=== PATIENT | female | born 1985 | race Caucasian/White ===

== ENCOUNTER 2020-05-26 01:39 | Outpatient (CLI) | payer OTHER, SELFPAY ==
[2020-05-26 19:02] LABS: SARS-CoV-2 RNA PCR Negative
== END 2020-05-26 01:40 | disposition home or self-care (01) ==
LOC: ANHCOVIDDT 01:40
PROVIDERS: PCP Family Medicine; Visit Provider Orthopaedic Surgery
DX: Z01.812 Encounter for preprocedural laboratory examination (principal); Z20.828 Contact with and (suspected) exposure to other viral communicable diseases
CPT/HCPCS: 87635; C9803; U0003

== ENCOUNTER 2020-05-26 08:04 | Outpatient (CLI) | payer OTHER, SELFPAY ==
--- NOTE | 2020-05-26 08:00 | ECG_ITS ---
Measurements Intervals [place] Rate: 65 P: 72 HI: 179 QRS: 82 QRSD: 104 T: 47 QT: 374 QTc: 390 Interpretive Statements SINUS RHYTHM INCOMPLETE RIGHT BUNDLE BRANCH BLOCK DELAYED PRECORDIAL R/S TRANSITION BORDERLINE ECG Electronically Signed On 05-26-2020 8:35:00 CDT by Marcelo Nguyen D.O.
== END 2020-05-26 08:05 | disposition home or self-care (01) ==
PROVIDERS: PCP Family Medicine; Visit Provider Orthopaedic Surgery
DX: Z87.891 Personal history of nicotine dependence (principal); Z01.818 Encounter for other preprocedural examination; I45.10 Unspecified right bundle-branch block
CPT/HCPCS: 93005

== ENCOUNTER 2020-05-28 00:51 | Day surgery (SDC) | payer OTHER, SELFPAY ==
[2020-05-15 13:56] VITALS: BMI 24.2
--- NOTE | 2020-05-27 14:13 | WPDANESEPPF ---
Anes - Initial Pre Proc Eval Procedure: Operation Date: 05/28/20 08:30 Proposed Procedures p Removal Hardware Left Ankle - López Goss MD Date/Time: 05/27/20 14:13 Surgeon: López Goss MD Pre Op Diagnosis: painful hardware left ankle Patient Data Age: 35 Gender: F Height: 5 ft 6 in Weight: 68.04 kg Allergies Allergy/AdvReac Type Severity Reaction Status Date / Time No Known Allergies Allergy Verified 05/28/20 06:50 Home Medications Medication Instructions Recorded Confirmed Type clindamycin HCl 300 mg capsule 300 mg PO Q8H 04/29/20 05/28/20 History estradiol 2 mg tablet 2 mg PO DAILY 04/29/20 05/28/20 History medroxyprogesterone 2.5 mg tablet 2.5 mg PO DAILY 04/29/20 05/28/20 History sertraline 100 mg tablet 100 mg PO DAILY 04/29/20 05/28/20 History valacyclovir [Valtrex] 500 mg PO Q12H 05/15/20 05/28/20 History Patient hx anesthesia problems: none Family hx anesthesia problems: none PMFSH Past Medical History Medical History (Updated 05/28/20 @ 07:58 by Saúl Cabrera MD) Anxiety Constipation Depression Painful orthopaedic hardware Tibia/fibula fracture Urinary frequency Vertigo Family History Family History Grandparent Family history of pulmonary embolism, Onset Age: 32 Other Diabetes mellitus Family history of arthritis Family history of cardiovascular disease Family history of chronic obstructive pulmonary disease Family history of elevated blood lipids Family history of malignant neoplasm Hypertension Social History Social History Smoking packs per day: 1 Smoking cigarettes per day: 20.0 Years smoked: 20 Smoking pack-years: 20.00 Smoking status: Current every day smoker Tobacco type: cigarettes Second hand tobacco smoke exposure: No Alcohol intake: current Drinks per week: 1 Substance use: current Substance use type: marijuana Last use: DAILY Gender identity (if verbalized by the patient): Female Anes - Eval Final PreProcedure Day of Procedure 05/27/20 14:13 Patient weight: normal Heart: regular rate and rhythm Lungs: clear to auscultation Airway: Mallampati scale class II Neurological: alert and oriented Last oral intake: >/= 8 hours ASA classification: II Emergent: no Anesthetic plan: proceed Anesthesia type and monitoring: general LMA and standard monitoring Informed Consent: The patient's anesthetic plan and its attendant risks and benefits were discussed with the patient/family/POA. Questions were solicited and answers provided to the satisfaction of the patient/family/POA.
[2020-05-28] VITALS (8 sets, daily range): BP systolic 99–115; BP diastolic 61–74; PULSE 50–72; RESP 14–18; TEMP 36.4–36.8; O2SAT 97–100
--- NOTE | ~2020-05-28 | XR_ITS ---
EXAMINATION: XR surgery orthopedic DATE: 05/28/2020 09:24 INDICATION: Orthopedic instrumentation removal at the left ankle TECHNIQUE: 2 fluoroscopic spot images of the left ankle were obtained in frontal and lateral projecti ons during procedure performed by Dr. Goss. Radiologist was not present for the imaging or procedu re. The amount of fluoroscopy time used during this procedure was 1.1 minutes. COMPARISON: 04/29/2020 FINDINGS: Interval removal of a pair of interlocking screws extending through the distal aspect of a tibial ant egrade intramedullary mykel. Residual lucent screw tracks are seen at the metaphyseal region of the dis loren tibia. Old healed fracture at the distal tibial diaphysis. There are also is a healed distal fibu lar fracture. Alignment appears essentially anatomic. No acute fracture. Tibiotalar, subtalar and loren onavicular joint spaces appear relatively preserved. IMPRESSION: 1. Fluoroscopy utilized for removal of a pair of interlocking screws associated with an intramedullar y mykel fixation of a healed distal left tibial diaphyseal fracture. No acute osseous abnormality. Reviewed, dictated and finalized at location A. IMPRESSION: 1. Fluoroscopy utilized for removal of a pair of interlocking screws associated with an intramedullary mykel fixation of a healed distal left tibial diaphyseal fracture. No acute osseous abnormality.
--- NOTE | 2020-05-28 06:59 | WPDHPUPDATE1 ---
History and Physical Update Update Date/Time: 05/28/20 06:59 History and Physical has been reviewed, including an updated exam of the patient. There are NO changes in the patient's condition. Covid test negative. Risks, benefits, and alternatives have been discussed and questions answered. Patient agrees to proceed with procedure. Plan is for hardware removal from LEFT ankle.
[2020-05-28] MEDS: ACETAMINOPHEN 500 MG TABLET 1000 MG PO (07:36)
[2020-05-28] MEDS: LACTATED RINGERS 1,000 ML 30 ML IV CONT (07:36)
[2020-05-28] MEDS: KETOROLAC 15 MG/ML VIAL (*BKC) IV PUSH (07:37)
[2020-05-28] MEDS: ceFAZolin 2 GM/D5W 50 ML 2 GM/50 ML BAG IVPB (08:37)
[2020-05-28] MEDS: BUPIVACAINE HCL 0.5% PF 30 ML VIAL INFILTRATE (09:03)
--- NOTE | 2020-05-28 09:37 | P.OP_ITS ---
Procedure Note - Detailed Date of procedure: 05/28/20 Pre-op diagnosis: painful hardware left ankle Post-op diagnosis: same Procedure performed: Removal of hardware left ankle Description of procedure: indications: Patient is 35-year-old woman who underwent intramedullary fixation of left tibia fracture 1.5 years ago. There is prominence of the distal locking screws at the ankle causing pain as well as rubbing shoe wear. She presents for operative removal. What was done: After informed consent was given the operative extremity was marked in prep holding area. Patient received intravenous antibiotics. She is brought to the operating room where she underwent general anesthetic. She was positioned supine on the operating room table. Time-out was performed confirming the patient and the procedure as well as the site. Left lower extremity then prepped and draped in the usual sterile surgical fashion using ChloraPrep skin solution. Previous surgical scars were utilized and 15 blade knife was used to make an incision over the medial malleolus screw. Blunt dissection carried down of the screw and the screw was removed. Fifteen blade knife used to make an incision over the anterior distal tibia and again blunt dissection used to locate the screw and the screw was removed. Image intensification was then brought in and confirmed removal of the hardware as well as alignment of the ankle joint. Wounds were thoroughly irrigated with solution. Local anesthetic with 0.5% Marcaine plain. Closure performed with 3 0 Monocryl subcuticular stitch and wound adhesive for the skin approximation. Sterile dressing applied. Patient then awoken from anesthesia, extubated and taken to the recovery room in stable condition. All sponge needle and instrument counts correct at the end the case. Anesthesia: GLMA Surgeon: López Goss MD Puppy Walker: administrative office assistant Estimated blood loss (mL): 5 Tourniquet time (min): 0 Drains: No Packing: No Pathology: none sent Complications: None Condition: stable Disposition: PACU
--- NOTE | 2020-05-28 11:32 | SUR.PHASEII ---
1055: Patient is getting dressed. Vitals are stable and patient is unhooked from monitors. Patient is waiting for ride.
== END 2020-05-28 11:08 | disposition home or self-care (01) ==
PROVIDERS: PCP Family Medicine; Visit Provider Orthopaedic Surgery
PROC: (CPT 20680; principal; 2020-05-28 08:30)
DX: T84.84XA Pain due to internal orthopedic prosthetic devices, implants and grafts, initial encounter (principal); M25.572 Pain in left ankle and joints of left foot; S82.202D Unspecified fracture of shaft of left tibia, subsequent encounter for closed fracture with routine healing; F41.8 Other specified anxiety disorders; F17.210 Nicotine dependence, cigarettes, uncomplicated
CPT/HCPCS: 20680; A9270; J0690; J1040; J1100; J1170; J1885; J2250; J2405; J2704; J3010; J7120

== ENCOUNTER 2021-01-24 18:49 | Emergency (ER) | payer OTHER, SELFPAY ==
[2021-01-24 18:55] VITALS: BP 112/76; PULSE 97; RESP 16; TEMP 37.4; O2SAT 99
--- NOTE | 2021-01-24 19:14 | ED.GENADULT ---
HPI - General Adult General Chief complaint: Upper Respiratory Infection Stated complaint: sore throat Time Seen by Provider: 01/24/21 19:12 Source: patient and RN notes reviewed Mode of arrival: ambulatory Limitations: no limitations History of Present Illness HPI narrative: 35-year-old female presents with complaints of sore throat for the past 3 days. ?Patel reports increasing throat pain. Ibuprofen taken last today with little relief. ?No high fevers, drooling, neck or throat swelling. ?Pain is bilateral. ?Hurts to swallow. ?Exacerbation factors consist of eating and drinking. ?No rhinorrhea or nasal congestion. ?No voice change. No nausea, vomiting, or abdominal pain. Tolerating liquids well. Denies chills, dyspnea, difficulty swallowing, jaw pain, dental pain, facial pain, foreign body sensation, and rash. ?Remains active. ?The patient reports she has not been diagnosed with COVID-19. ?The patient reports she received 2 Moderna COVID-19 vaccines. The patient reports she is not waiting for the results of a COVID-19 lab test. ?The patient reports she does not have chills, weakness, or fatigue. ?The patient reports she does not have a new or worsening cough or shortness of breath. ?Denies chest pain. ?The patient reports she does not have any loss of taste or smell, and diarrhea. ?Denies recent traveling. ?Denies concerns for COVID-19 or exposures. ?At this time, the patient is not suspected of having COVID-19. Some parts of this dictation were generated by voice recognition software and may contain typographical and/or grammatical inaccuracies. Related Data Home Medications Medication Instructions Recorded Confirmed clindamycin HCl 300 mg capsule 300 mg PO Q8H 04/29/20 06/02/20 estradiol 2 mg tablet 2 mg PO DAILY 04/29/20 01/24/21 medroxyprogesterone 2.5 mg tablet 2.5 mg PO DAILY 04/29/20 01/24/21 sertraline 100 mg tablet 100 mg PO DAILY 04/29/20 01/24/21 valacyclovir [Valtrex] 500 mg PO Q12H 05/15/20 06/02/20 Allergies Allergy/AdvReac Type Severity Reaction Status Date / Time No Known Allergies Allergy Verified 06/02/20 08:40 Review of Systems Review of Systems: Narrative: CONSTITUTIONAL: Denies fever, chills, sweats. EYES: Denies visual changes, redness, discharge. ENT: Denies rhinorrhea, congestion, otalgia. Complains of sore throat. CARDIOVASCULAR: Denies chest pain, palpitations, edema. RESPIRATORY: Denies dyspnea, wheezing, cough. GASTROINTESTINAL: Denies abdominal pain, nausea, vomiting, diarrhea. SKIN: Denies rash or itching. MUSCULOSKELETAL: Denies acute back pain, joint pain, or myalgia. NEUROLOGIC: Denies numbness or focal weakness. PSYCHIATRIC: Denies anxiety or depression. All systems reviewed & are unremarkable except as noted in HPI and below. [facility] Past Medical History Medical History (Updated 01/25/21 @ 00:01 by Anmol Neely) Anxiety Constipation Depression Painful orthopaedic hardware Tibia/fibula fracture Urinary frequency Vertigo Surgical History Surgical History (Updated 01/24/21 @ 19:38 by SHEILA Shaikh) History of dilation and curettage X2 History of surgery on extremity Family History Family History Grandparent Family history of pulmonary embolism, Onset Age: 32 Other Diabetes mellitus Family history of arthritis Family history of cardiovascular disease Family history of chronic obstructive pulmonary disease Family history of elevated blood lipids Family history of malignant neoplasm Hypertension Social History Social History (Updated 01/24/21 @ 19:37 by SHEILA Shaikh) Smoking packs per day: 1 Smoking cigarettes per day: 20.0 Years smoked: 20 Smoking pack-years: 20.00 Smoking status: Current every day smoker Tobacco type: cigarettes Second hand tobacco smoke exposure: No Alcohol intake: current Drinks per week: 1 Substance use: current
== END 2021-01-24 19:28 | disposition home or self-care (01) ==
PROVIDERS: Emergency Provider Nurse Practitioner Family
DX: J02.9 Acute pharyngitis, unspecified (principal); F17.210 Nicotine dependence, cigarettes, uncomplicated; F41.9 Anxiety disorder, unspecified; F32.9 Major depressive disorder, single episode, unspecified
CPT/HCPCS: 87880; 99213; G0463

== ENCOUNTER 2023-01-26 00:45 | Day surgery (SDC) | payer OTHER, SELFPAY ==
[2023-01-20 15:03] VITALS: BMI 29.0
--- NOTE | 2023-01-20 15:05 | SUR.PREOP ---
Report to the Outpatient Waiting Room, entrance under the green pavilion located off [facility], at time _0600 on date __01/26/23 . Planned Procedure Time: __729 . Time changes happen often and if your time is changed the preop area will call you the afternoon before. - You and your visitor will be asked to self-screen and do not enter if you have any COVID symptoms. - A mask is optional within the hospital at this time. Patients may have clear liquids (water, carbonated beverages, clear teas, apple juice) until 3 hours prior to surgery with a maximum of 20 ounces. - No food from midnight until time of surgery - Infants may have breast milk until 4 hours before surgery, infant formula 6 hours prior to surgery. - Children will be allowed to drink immediately following surgery. If applicable, please bring a bottle or sippy cup to assist with drinking. Juice, water, soda, and popsicles are readily available. For infants on formula, please bring formula the day of surgery. Pacifiers are allowed. Take the following medications with a SIP of water the morning of surgery: ___n/a DO NOT STOP ANY OF YOUR OTHER PRESCRIPTION MEDICATIONS PRIOR TO SURGERY ?EXCEPT THE FOLLOWING Medications to discontinue per physician ___n/a Date to take last dose___n/a Please no make-up, nail upper sorbian, hairspray, perfume, deodorant, or body powder the day of surgery. No jewelry (including any body piercings) or valuables the day of surgery, leave them at home. Please take a shower or bath the night before, or the morning of, surgery with an antibacterial soap. Wear comfortable, loose fitting clothing. Children are encouraged to wear pajamas. - Jewelry must be removed prior to entering the operating room. Rings and piercings that are not removed may be cut off. - The hospital will not accept responsibility for valuables. - Please leave all valuables, including medications, at home the day of surgery. If you are going home after surgery, a licensed livery car driver must drive you home. - NO public transportation without another adult if you receive anesthesia. - We recommend that an adult stay with you for 24 hours following discharge. - We also recommend that you do not drive, make important decision, drink alcoholic beverages, or take any drugs that were not prescribed by your health care provider for at least 24 hours after your discharge time. For Pediatric surgeries, we recommend two adults accompany the child home. Follow any additional instructions given to you from your surgeon. If you or anyone in your household have experienced Covid symptoms in the past week, please notify your surgeon or the nurse liaison at the phone number below for possible testing. Telephone instructions given to _juan manzano and asked if any additional questions and then verbalized understanding. Patient advised to call surgeon office or pre surgery nurse liaison [phone] if any additional questions.
--- NOTE | 2023-01-23 10:33 | PC.NURSE ---
called pt states takes venlafexine in afternoon and does not wish to take am of surgery,tooth abcess 2017 not on antibiotics
[2023-01-26] VITALS (12 sets, daily range): BP systolic 115–150; BP diastolic 73–97; PULSE 51–98; RESP 14–20; TEMP 35.9–36.5; O2SAT 90–99
[2023-01-26] MEDS: LACTATED RINGERS 1,000 ML 30 ML IV CONT ×2 (06:30→08:31)
--- NOTE | 2023-01-26 07:04 | WPDHPUPDATE1 ---
History and Physical Update Update Date/Time: 01/26/23 07:04 History and Physical has been reviewed, including an updated exam of the patient. There are NO changes in the patient's condition. Risks, benefits, and alternatives have been discussed and questions answered. Patient agrees to proceed with procedure.
--- NOTE | 2023-01-26 07:05 | W.PM.PROC2 ---
Procedure Note - Detailed Date of Procedure 01/26/23 Pre-op Diagnosis micromastia Post-op Diagnosis Same Procedure Performed Bilateral Augmentation Mammaplasty Surgeon Vito Harris MD Anesthesia General Findings Bilateral Dual Plane 1 485cc Right - REF# [id number] SN [id number] Left - REF# [id number] SN [id number] Description of Procedure She is here today for bilateral breast augmentation. Previously and again today the risks, benefits, alternatives were discussed in extensive detail. I wanted her to be very realistic about the risks involved as well as expectations. We discussed aftercare and what to monitor for. Made sure answered all of her questions to her satisfaction today and consent was obtained. Marked in the preoperative holding area with their verification. The patient was taken to the operating room placed supine on the operating table. Anesthesia was provided by anesthesiology. A surgical time-out was taken. We cleansed the skin and 1% lidocaine and 0.25% Marcaine with epinephrine was used anesthetize as a field block. She was prepped and draped in a standard sterile fashion. Tegaderm nipple Capone were placed. A 15 blade used to make an incision along the inframammary fold. Dissection was continued at 45 degree angle until the chest wall as identified. I incised the pectoralis major along its inferior border and completely released the inferior border leaving the medial border intact. I created a subpectoral pocket in the appropriate dimensions based on our preoperative planning for the implant. A fibrous band left lower breasted which was released. I then copiously irrigated with saline solution and verified a strict hemostasis. Next the use a triple antibiotic and Betadine containing solution to irrigate the pocket. I washed my gloves with the triple antibiotic and Betadine solution. We washed the implant immediately upon opening it with this solution and only opened it when we needed it. I used implant funnel and no-touch technique. The implant was introduced into the pocket using the funnel. Having verified positioning of the implant this was closed using 2-0 PDS followed by 3-0 Monocryl in a running subcuticular 4-0 Monocryl followed by tissue glue. Fluffs and surgical bra were placed. Patient was awoke and taken to PACU without difficulty. All instrument sponge counts were correct at the end of the case. Estimated Blood Loss 25 Drains No Packing No Pathology None sent Complications No immediate complications Condition Stable Disposition PACU
--- NOTE | 2023-01-26 07:10 | WPDANESEPPF ---
Anes - Initial Pre Proc Eval Procedure: Operation Date: 01/26/23 07:30 Proposed Procedures p Bilateral Breast Augmentation with Galaflex - Vito Harris MD Date/Time: 01/26/23 07:10 Surgeon: Vito Harris MD Pre Op Diagnosis: micromastia Patient Data Age: 37 Gender: F Height: 1.7 m Weight: 84.09 kg Allergies Allergy/AdvReac Type Severity Reaction Status Date / Time No Known Allergies Allergy Verified 01/20/23 14:41 Home Medications Medication Instructions Recorded Confirmed Type venlafaxine 37.5 mg 37.5 mg PO DAILY 01/20/23 01/20/23 History capsule,extended release 24 hr Patient hx anesthesia problems: other (states difficulty waking up) Family hx anesthesia problems: none Results Review: All pre-operative results and documents have been reviewed as part of the pre-operative evaluation. [facility] Past Medical History Medical History (Updated 12/28/22 @ 06:45 by Arelis Trent) Anxiety Constipation Depression Painful orthopaedic hardware Tibia/fibula fracture Urinary frequency Vertigo Surgical History Surgical History (Updated 12/28/22 @ 06:45 by Arelis Trent) History of dilation and curettage X2 History of surgery on extremity Family History Family History (System 12/28/22 @ 06:45 by Arelis Trent) Grandparent Family history of pulmonary embolism, Onset Age: 32 Other Diabetes mellitus Family history of arthritis Family history of cardiovascular disease Family history of chronic obstructive pulmonary disease Family history of elevated blood lipids Family history of malignant neoplasm Hypertension Social History Social History (System 12/28/22 @ 06:45 by Arelis Trent) Smoking packs per day: 1 Smoking cigarettes per day: 20.0 Years smoked: 20 Smoking pack-years: 20.00 Smoking status: Current every day smoker Tobacco type: cigarettes and e-cigarettes/vaping Second hand tobacco smoke exposure: No Additional smoking assessment comments: 1/2ppd cigarettes [id number] Alcohol intake: current Drinks per week: 4 Alcohol use details: 1-2 per week Substance use: current Substance use type: marijuana Other substance usage details: smoking daily Last use: DAILY Living arrangements: with family Occupation/Education: occupation Gender identity (if verbalized by the patient): Female Sexual Orientation (if Verbalized by the Patient): Straight or Heterosexual Spiritual care concerns: No Anes - Eval Final PreProcedure Day of Procedure 01/26/23 07:10 Patient weight: normal Heart: regular rate and rhythm Lungs: clear to auscultation Airway: Mallampati scale class II Neurological: alert and oriented Last oral intake: >/= 8 hours ASA classification: II Emergent: no Anesthetic plan: proceed Anesthesia type and monitoring: general LMA and standard monitoring Results Review: All pre-operative results and documents have been reviewed as part of the pre-operative evaluation. Informed Consent: The patient's anesthetic plan and its attendant risks and benefits were discussed with the patient/family/POA. Questions were solicited and answers provided to the satisfaction of the patient/family/POA.
[2023-01-26] MEDS: TRANEXAMIC ACID 1,000MG/ISO100 1,000 MG/100 ML BAG 200 MG IVPB (07:25)
[2023-01-26] MEDS: ceFAZolin 2 GM/D5W 50 ML 2 GM/50 ML BAG IVPB (07:25)
[2023-01-26] MEDS: NACL 0.9% IRRIG POUR BOTTLE 900 ML, GENTAMICIN SULFATE INJ 160 MG, ceFAZolin 2 GM, POVI... IRRIGATION (07:54)
[2023-01-26] MEDS: LIDO 1%/EPINEPHRINE 1:100,000 50 ML VIAL 30 ML INFILTRATE (07:55)
[2023-01-26] MEDS: BUPivacaine HCL 0.25% PF 30 ML VIAL INFILTRATE (07:55)
[2023-01-26] MEDS: fentaNYL CITRATE INJ (*CRX) 100 MCG/2 ML VIAL 25 MCG IV PUSH ×2 (08:49→08:52)
[2023-01-26] MEDS: oxyCODONE HCL (*CRX) 5 MG TAB IR PO (10:35)
--- NOTE | 2023-01-26 11:12 | SUR.PHASEII ---
Dr. Cabrera aware of patient's heart rate dropping to 40. He said since her BP is okay continue to monitor at this time. He also said an incentive spirometer was fine since patient's O2 sats can't be maintained above 90.
== END 2023-01-26 12:05 | disposition home or self-care (01) ==
PROVIDERS: PCP Family Medicine; Visit Provider Surgery Plastic and Reconstructive Surgery
PROC: (CPT 19325; principal; 2023-01-26 07:30)
DX: Z41.1 Encounter for cosmetic surgery (principal); N64.82 Hypoplasia of breast; F41.9 Anxiety disorder, unspecified; F32.A Depression, unspecified; F17.210 Nicotine dependence, cigarettes, uncomplicated; F12.90 Cannabis use, unspecified, uncomplicated
CPT/HCPCS: 19325; A9270; J0690; J1100; J1170; J1580; J2250; J2405; J2704; J3010; J7120